=== PATIENT | female | born 1980 | race Two or more races ===

== ENCOUNTER → 2017-06-27 | Emergency (ER) | payer OTHER ==
[~2017-06-27] VITALS: Ht 162.6 cm; Wt 72.6 kg
[~2017-06-27] MED LIST: CLONAZEPAM1 MG; GLYCOTROL CAPS1 EACH; KETO10TA2 PO; MOBIC15 MG; NEURONTIN300 MG; ORPH100T PO; PERCOCET 10-3251 TAB; TRAMADOL HCL50 MG; ZYRTEC10 MG PO; [UNRECOGNIZED DRUG - SUPPLY]
== END | disposition home or self-care (01) ==
LOC: ER 11:34
DX: S90.475A Other superficial bite of left lesser toe(s), initial encounter (principal); W57.XXXA Bitten or stung by nonvenomous insect and other nonvenomous arthropods, initial encounter; Y93.89 Activity, other specified; Y92.89 Other specified places as the place of occurrence of the external cause; Y99.8 Other external cause status

== ENCOUNTER 2017-07-25 22:05 | Emergency (ER) | payer OTHER ==
[~2017-07-25] VITALS: Ht 154.9 cm; Wt 72.6 kg
[2017-07-25] MEDS ORDERED: DIPHENOXYLATE-1 EACH PO (23:50)
[2017-07-25] MEDS ORDERED: HYOSCYAMINE0.125 M2 PO (23:50)
[2017-07-25] MEDS ORDERED: PROMETHAZINE HC25 MG PO (23:50)
[2017-07-25] MEDS ORDERED: INTESTINEX680 M1 PO (23:50)
== END 2017-07-26 00:53 | disposition home or self-care (01) ==
LOC: ER 22:05
DX: K52.9 Noninfective gastroenteritis and colitis, unspecified (principal)

== ENCOUNTER 2019-05-14 17:42 | Emergency (ER) | payer OTHER ==
[~2019-05-14] VITALS: Ht 162.6 cm; Wt 88.9 kg
[~2019-05-14 17:42] MED LIST changes: +DIPHENOXYLATE-1 EACH PO; +HYOSCYAMINE0.125 M2 PO; +INTESTINEX680 M1 PO; +PROMETHAZINE HC25 MG PO
== END 2019-05-14 23:32 | disposition home or self-care (01) ==
LOC: ER 17:42
DX: N83.292 Other ovarian cyst, left side (principal); N83.291 Other ovarian cyst, right side; N93.8 Other specified abnormal uterine and vaginal bleeding

== ENCOUNTER 2022-11-18 05:10 | Emergency (ER) | payer OTHER ==
[~2022-11-18] VITALS: Ht 160 cm; Wt 90.7 kg
== END 2022-11-18 06:09 | disposition home or self-care (01) ==
LOC: ER 05:10
DX: M54.50 Low back pain, unspecified (principal); Z88.8 Allergy status to other drugs, medicaments and biological substances

== ENCOUNTER 2023-02-09 20:42 | Emergency (ER) | payer OTHER ==
[~2023-02-09] VITALS: Ht 160 cm; Wt 90.7 kg
[2023-02-10] MEDS ORDERED: TUSNEL LIQUID178 ML PO (03:07)
[2023-02-10] MEDS ORDERED: MEDROLPACK PO (03:07)
[2023-02-10] MEDS ORDERED: ALBUTEROL2.5 MG/3 M IH (03:07)
== END 2023-02-10 03:16 | disposition home or self-care (01) ==
LOC: ER 20:42
PROVIDERS: General Practice
DX: J45.909 Unspecified asthma, uncomplicated (principal); Z20.822 Contact with and (suspected) exposure to COVID-19

== ENCOUNTER 2023-07-02 09:57 | Emergency (ER) | payer OTHER ==
[~2023-07-02] VITALS: Ht 160 cm; Wt 93.0 kg
[~2023-07-02 09:57] MED LIST changes: +ALBUTEROL2.5 MG/3 M IH; +MEDROLPACK PO; +TUSNEL LIQUID178 ML PO
[2023-07-02 12:29] LABS: PH,URINE 6.5 (5.0-8.0); URINE APPEARANCE Clear; URINE BILIRRUBIN Negative (NEGATIVE); URINE BLOOD Negative; URINE COLOR Yellow; URINE GLUCOSE Negative (NEGATIVE); URINE LEUKOCYTE Negative; URINE NITRATE Negative; URINE PROTEIN Negative (NEGATIVE); URINE UROBILINOGEN 0.2 E.U./dl
[2023-07-02 12:33] LABS: URINE BACTERIA 21.4 uL (0.0-1933); URINE EPITHELIAL CELLS 3.7 uL (0.0-38.8)
[2023-07-02 12:39] LABS: HEMATOCRIT 38.4 % (36.0-45.00); HEMOGLOBIN 13.1 g/dL (12.0-15.00); MEAN CELL VOLUME 94.8 fL (80.00-100.00); MEAN CORPUSCULAR HEMOGLOBIN 32.4 pg (27.00-32.0); MEAN CORPUSCULAR HGB CONC 34.1 g/dl (32.0-36.0); PLATELET COUNT 274 K/uL (150-450); RED BLOOD COUNT 4.06 M/uL (4.00-6.00); RED CELL DISTRIBUTION WIDTH 12.6 % (11.5-14.5)
[2023-07-02 12:45] LABS: URINE RBC 0.5 uL (0.0-20.8); URINE WBC 0.3 uL (0.0-23.2)
[2023-07-02 13:10] LABS: ALBUMIN 3.9 gm/dL (3.4-5.0); BILIRUBIN TOTAL 0.48 mg/dL (0.3-1.2); CREATININE SERUM 0.93 mg/dL (0.55-1.02); GFR 65.19; GLOBULINA 2.9 G/DL (2.4-3.5); POTASSIUM 4.33 mEq/L (3.5-5.1); TOTAL PROTEIN 6.8 gm/dL (6.4-8.2)
== END 2023-07-02 19:59 | disposition home or self-care (01) ==
LOC: ER 09:57
PROVIDERS: Emergency Medicine
DX: R10.2 Pelvic and perineal pain (principal)
CPT/HCPCS: 36415; 74177; Q9965